=== PATIENT | female | born 1980 | race Caucasian/White ===

== ENCOUNTER → 2019-09-10 09:22 | Outpatient (CLI) | payer OTHER, SELFPAY ==
--- NOTE | ~2019-09-10 | US_ITS ---
EXAMINATION: US transvaginal EXAM DATE: 09/10/2019 09:51 INDICATION: Left ovarian cyst. TECHNIQUE: Pelvic transvaginal sonogram was performed. There are multiple grayscale and Doppler imag es available for interpretation. There is no prior study for comparison. FINDINGS: Uterus measures 8.7 x 5.0 x 5.6 cm, is retroverted and morphologically normal. IUD is seen in expected position within the endometrial cavity. Endometrial stripe measures 6 mm, within normal limits. There is a nabothian cyst. There is small free pelvic fluid. Right adnexa: The ovary measures 5.1 x 3.8 x 4.8 cm, with a 3.5 cm anechoic cystic lesion likely the dominant follicle. Ovarian vascular flow confirmed. Left adnexa: The ovary measures 2.0 x 1.4 x 3.2 cm, with resolution of previously seen physiologic or hemorrhagic cyst. Ovarian vascular flow confirmed. IMPRESSION: 1. Right ovarian cyst likely physiologic. 2. IUD in position. Reviewed, dictated and finalized at location B. APEUTIC RIDING INSTRUCTOR
== END ==
PROVIDERS: Visit Provider Obstetrics & Gynecology Gynecology
DX: N83.202 Unspecified ovarian cyst, left side (principal); Z97.5 Presence of (intrauterine) contraceptive device
CPT/HCPCS: 76830

== ENCOUNTER → 2021-08-17 11:55 | Outpatient (CLI) | payer OTHER, SELFPAY ==
--- NOTE | ~2021-08-17 | MM_ITS ---
EXAMINATION: MM screening lisa BI w [facility] HISTORY: Screening TECHNIQUE: Craniocaudal and mediolateral oblique 3-D tomosynthesis images were obtained and synthetic 2-D images were generated. CAD analysis was submitted and interpreted. COMPARISON: No prior mammogram is available for comparison at this institution. BREAST PARENCHYMAL COMPOSITION: There are scattered areas of fibroglandular density. FINDINGS: There are no suspicious masses, calcifications or architectural distortion in the left jo[address]. There are subtle masses in the periareolar location of the right breast. IMPRESSION: 1. Right breast masses in the periareolar location. 2. Additional mammographic views and possible breast ultrasound are recommended. BI-RADS Category 0: Incomplete: Needs additional imaging evaluation. Reviewed, dictated and finalized at location A. COATING OPERATOR METAL IMPRESSION: 1. Right breast masses in the periareolar location. 2. Additional mammographic views and possible breast ultrasound are recommended . BI-RADS Category 0: Incomplete: Needs additional imaging evaluation.
== END ==
PROVIDERS: Visit Provider Obstetrics & Gynecology Gynecology
DX: Z12.31 Encounter for screening mammogram for malignant neoplasm of breast (principal)
CPT/HCPCS: 77063; 77067

== ENCOUNTER → 2021-09-02 08:24 | Outpatient (CLI) | payer OTHER, SELFPAY ==
--- NOTE | ~2021-09-02 | MMUS_ITS ---
EXAMINATION: MM diagnostic lisa RT w [facility], US breast RT limited HISTORY: Follow-up right breast masses TECHNIQUE: Additional 3-D tomosynthesis images of the right breast were performed and synthetic 2-D i mages were generated. CAD analysis was submitted and interpreted. High resolution Limited right breas t ultrasound was performed. COMPARISON: 08/17/2021 BREAST PARENCHYMAL COMPOSITION: Breast composed of scattered areas of fibroglandular density. FINDINGS: MAMMOGRAPHIC FINDINGS: There are small masses in the periareolar location of the right breast which are partially obscured b y fibroglandular content. ULTRASOUND: Limited right breast ultrasound: At 9:00 near the areola there is a 4 mm hypoechoic mass with parallel orientation, no posterior featu res and no internal vascularity. At 12:00 near the areola there is an oval circumscribed hypoechoic m ass with parallel orientation measuring 5 mm without posterior features or internal vascularity. At 1 :00 near the nipple there is a 3 mm cyst. At 1:00, near the nipple there is a second mass measuring 5 x 4 x 3 mm with parallel orientation, echogenic hilum, no posterior features and no internal vascula rity, likely benign. IMPRESSION: 1. Probable benign right breast masses. 2. Recommend 6 month follow-up right breast ultrasound BI-RADS category 3, probably benign findings. Reviewed, dictated and finalized at location A. OMER ACCOUNT MANAGER IMPRESSION: 1. Probable benign right breast masses. 2. Recommend 6 month follow-up right breast ultrasound BI-RADS category 3, probably benign findings.
== END ==
PROVIDERS: Visit Provider Obstetrics & Gynecology Gynecology
DX: N63.14 Unspecified lump in the right breast, lower inner quadrant (principal); N60.01 Solitary cyst of right breast
CPT/HCPCS: 76642; 77061; 77065; G0279